=== PATIENT | male | born 1995 | race Caucasian/White ===

== ENCOUNTER 2023-04-01 22:43 | Day surgery (SDC) | payer BC, SELFPAY ==
[2023-04-01 23:02] VITALS: BP 120/88; PULSE 75; RESP 169; O2SAT 100; BMI 19.4
--- NOTE | 2023-04-01 23:27 | ED_ITS ---
HPI - Skin/Abscess/Foreign Bdy General Chief complaint: Skin/Abscess/Foreign Body Stated complaint: food stuck in his throat Time Seen by Provider: 04/01/23 23:22 History of Present Illness HPI narrative: Patient is a 27-year-old male status post ingestion some salmon. Feels like it is stuck in the suprasternal notch area. Denies any changes in speech. Denies any difficulty breathing. Unable to tolerate saliva. History of something similar. Usually resolve itself after going to the ER. Never been scoped in the past. Patient is from home. Related Data Allergies Allergy/AdvReac Type Severity Reaction Status Date / Time amoxicillin [AMOXICILLIN] Allergy Unknown HYPERACTIVI Verified 04/01/23 23:43 TY Review of Systems Review of Systems: No fever no chills no chest pain or shortness breath. Positive nausea unable to tolerate p.o. Yes all other systems are reviewed and are negative Constitutional: Constitutional: Reports as per [facility] Past Medical History Attestation statement: The following information was validated with the patient. Social History Social History Advance Directives: No Advance Directives Information Provided: No Physical Exam Vital Signs: Vital Signs: Last Vital Signs Pulse 75 04/01/23 23:02 Resp 169 H 04/01/23 23:02 BP 120/88 04/01/23 23:02 Pulse Ox 100 04/01/23 23:02 O2 Del Method Room Air 04/01/23 23:02 BMI result Body Mass Index 19.4 Appearance: Alert. Oriented X3. No acute distress. Eyes: Pupils equal, round and reactive to light. ENT: Pharynx normal. Neck: Normal inspection. Neck supple. No lymph nodes noted. No crepitus CVS: Normal heart rate and rhythm. Pulses normal. Normal S1 and S2 Respiratory: No respiratory distress. Breath sounds normal. No Wheezing. No rales Abdomen: Soft and nontender. No rigidity. No distention. good BS x4 Skin: Skin warm and dry. Normal skin color. Normal skin turgor. Extremities: No lower extremity edema. Neurovascular intact to all extremities. No Lacerations. No Rash Neuro: Oriented X 3. No motor deficit. No sensory deficit. Moving all extermities. No slurred speech Medications Administered Discontinued Medications Generic Name Dose Route Start Last Admin Trade Name Freq PRN Reason Stop Dose Admin Glucagon 1 mg 04/01/23 23:26 04/01/23 23:44 Glucagon Hcl 1 Mg Vial IVPUSH 04/01/23 23:27 1 mg ONCE ONE Administration Sodium Chloride 1,000 mls @ 999 mls/hr 04/01/23 23:30 04/01/23 23:44 Ns IV 04/02/23 00:30 999 mls/hr .Q1H1M JUVE Administration Medical Decision Making Medical Decision Making [facility] Narrative: Patient likely has esophageal food impaction. Cannot tolerate own saliva. Airway is grossly intact patient is able to speak has clear lungs. Given glucagon x1 dose given a L of fluid monitor for an hour still unable to tolerate fluids. Patient's case discussed with Dr. Landers from GI. Will come in and perform an endoscopy to try to relieve patient's food impaction. Currently in stable condition Differential Diagnosis Differential Diagnoses: The differential diagnosis associated with the presentation includes Food impaction, airway compromise Admission/Observation Consideration of admission/observation: Escalation of care including admission/observation considered Patient unable to be relieved with medication. will be going to endoscopy Consult Healthcare Provider Management of the patient was discussed with: Loss Prevention Officer Gastroenterology Lab Data [facility] Lab Attestation statement: I reviewed the patient's lab results. 04/01/23 23:32 04/01/23 23:32 Labs: Lab Results 04/01/23 04/01/23 Range/Units 23:32 23:32 WBC 5.5 (4.8-10.8) X10*3/uL RBC 5.13 (4.60-5.80) X10*6/uL Hgb 15.2 (14.0-18.0) g/dl Hct 43.0 (42.0-52.0) % MCV 83.8 (80.0-98.0) fL MCH 29.6 (27.0-33.0) pg MCHC 35.3 (31.0-36.0) g/dl RDW 11.8 (11.0-16.0) % Plt Count 159 L (160-400) X10*3/uL MPV 10.8 (9.4-12.4) fL Immature Gran % (Auto) 0.2 (0.0-0.4) % Neut % (Auto) 53.6 (45-73) % Lymph % (Auto) 35.0 (20-40) % [place] % (Auto) 6.6 (2-11) % Eos % (Auto) 3.7 (0-4) % Baso % (Auto) 0.9 (0-2) % Lymph # (Auto) 1.9 (1.2-4.9) X10*3/uL [place] # (Auto) 0.4 (0.1-1.2) X10*3/uL Eos # (Auto) 0.2 (0.0-0.4) X10*3/uL Baso # (Auto) 0.1 (0.0-0.2) X10*3/uL Abs Immat Gran (auto) 0.01 (0.00-0.03) X10*3/uL Absolute Neuts (auto) 2.9 (2.0-8.3) x10*3/uL Absolute Nucleated RBC 0.000 (0.0-0.012) X10*3/uL Nucleated RBC % (auto) 0.0 (0.0-0.2) /100WBC Sodium 142 (135-145) mmol/L Potassium 3.5 (3.3-5.1) mmol/L Chloride 106 (96-108) mmol/L Carbon Dioxide 28 (22-29) mmol/L Anion Gap 12 (12-20) BUN 10 (9-16) mg/dL Creatinine 0.92 (0.5-1.4) mg/dL Estim Creat Clear Calc 103.5 Estimated GFR > 60 Random Glucose 91 (60-115) mg/dL Calcium 10.1 (8.4-10.2) mg/dL Chronic Conditions History of food impaction in the past Discharge Plan Discharge Clinical Impression: Food impaction of esophagus Patient Disposition: Still a Patient
[2023-04-01 23:37] LABS: MANUAL DIFF FLAG NO
[2023-04-01 23:38] LABS: Basophils Absolute Auto 0.1 X10*3/uL (0.0-0.2); Basophils Percent Auto 0.9 % (0-2); Eosinophils Absolute Auto 0.2 X10*3/uL (0.0-0.4); Eosinophils Percent Auto 3.7 % (0-4); Hemoglobin 15.2 g/dl (14.0-18.0); Imm Gran Abs Auto 0.01 X10*3/uL (0.00-0.03); Imm Gran Pct Auto 0.2 % (0.0-0.4); Lymphocytes Absolute Auto 1.9 X10*3/uL (1.2-4.9); Mean Corpuscular HGB Conc 35.3 g/dl (31.0-36.0); Mean Corpuscular Hemoglobin 29.6 pg (27.0-33.0); Mean Corpuscular Volume 83.8 fL (80.0-98.0); Mean Platelet Volume 10.8 fL (9.4-12.4); Monocytes Absolute Auto 0.4 X10*3/uL (0.1-1.2); Monocytes Percent Auto 6.6 % (2-11); Neutrophils Absolute Auto 2.9 x10*3/uL (2.0-8.3); Neutrophils Percent Auto 53.6 % (45-73); Platelet Count 159 X10*3/uL (160-400); Red Blood Count 5.13 X10*6/uL (4.60-5.80); Red Cell Distribution Width 11.8 % (11.0-16.0); White Blood Count 5.5 X10*3/uL (4.8-10.8)
[2023-04-01] MEDS: 0.9 % Sodium Chloride 1,000 ML 999 ML IV (23:44)
[2023-04-01] MEDS: glucagon HCL 1 MG VIAL IVPUSH (23:44)
[2023-04-01 23:55] LABS: Anion Gap 12 (12-20); Blood Urea Nitrogen 10 mg/dL (9-16); Calcium 10.1 mg/dL (8.4-10.2); Carbon Dioxide 28 mmol/L (22-29); Chloride 106 mmol/L (96-108); Creatinine Clr Calc Pharmacy 103.5; Estimated Glomerular Filt Rate > 60; Glucose Random 91 mg/dL (60-115); Potassium 3.5 mmol/L (3.3-5.1); Sodium 142 mmol/L (135-145)
--- NOTE | 2023-04-02 01:54 | P.CONAN_ITS ---
[facility] Active Problems Active Problems: All Active Problems (Updated 04/02/23 @ 01:20 by Italia Shields MD) Food impaction of esophagus (Acute) Family History Family history of problems with anesthesia: No Surgical History History of Problems with Anesthesia: No Social History Social History Advance Directives: No Advance Directives Information Provided: No Meds Allergies Allergy/AdvReac Type Severity Reaction Status Date / Time amoxicillin [AMOXICILLIN] Allergy Unknown HYPERACTIVI Verified 04/01/23 23:43 TY Exam Exam Date and Time: April 02, 2023 0154 Height,Weight and Vital Signs: Height 5 ft 10 in Weight 61.235 kg Last Vital Signs Pulse 75 04/01/23 23:02 Resp 169 H 04/01/23 23:02 BP 120/88 04/01/23 23:02 Pulse Ox 100 04/01/23 23:02 O2 Del Method Room Air 04/01/23 23:02 Pertinent Lab Results Pertinent Lab Results: Laboratory Tests 04/01/23 04/01/23 23:32 23:32 WBC 5.5 RBC 5.13 Hgb 15.2 Hct 43.0 MCV 83.8 MCH 29.6 MCHC 35.3 RDW 11.8 Plt Count 159 L MPV 10.8 Immature Gran % (Auto) 0.2 Neut % (Auto) 53.6 Lymph % (Auto) 35.0 [place] % (Auto) 6.6 Eos % (Auto) 3.7 Baso % (Auto) 0.9 Lymph # (Auto) 1.9 [place] # (Auto) 0.4 Eos # (Auto) 0.2 Baso # (Auto) 0.1 Abs Immat Gran (auto) 0.01 Absolute Neuts (auto) 2.9 Absolute Nucleated RBC 0.000 Nucleated RBC % (auto) 0.0 Sodium 142 Potassium 3.5 Chloride 106 Carbon Dioxide 28 Anion Gap 12 BUN 10 Creatinine 0.92 Estim Creat Clear Calc 103.5 Estimated GFR > 60 Random Glucose 91 Calcium 10.1 Airway Mallampati Class: I TM Dist: >3cm Neck ROM: Full Heart: RRR Lungs: CTA Assessment and Plan Final Anesthetic Review Family History of Problems with Anesthesia: No History of Problems with Anesthesia: No NPO: No ASA Class: II, V and Emergency Final Preanesthetic Review: Meds/Allgs Chart Reviewed, Consent Obtained/Reviewed and Anes Risks/Benef Reviewed Patient Risk: Intermediate Procedure Risk: Low Anesthetic Plan Anesthetic Plan: GA Disposition: Standard PACU
--- NOTE | 2023-04-02 02:05 | PM.GICN ---
History of Present Illness Data of Consult Service Date: 04/02/23 Requesting physician: Italia Shields Primary Care Provider: Unknown Physician HPI Reason for consult: dysphagia 27 YM came to [facility] ED on 04/01/23 with dysphagia to solids and liquids. Pt reports he was eating [place] around 8:30 pm on 04/01/23 and food got stuck - feels like it is stuck in the suprasternal notch area.? Denies any changes in speech. Patient is been unable to swallow liquids or his saliva since then.? Denies any difficulty breathing.? Pt gives a hx of dysphagia to solids for the past several yrs. He had 3 ER visits in the past for food impaction which resolved by regurgitation of the food bolus Pt denies having an EGD in the past.? Patient is from home. Patient complains of intermittent heartburn related to diet. He denies recent change in appetite bowel habits or weight. 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 Patient denies major cardiac or pulmonary problems, loud snoring or sleep apnea Denies being on chronic anticoagulation. Patient denies smoking or EtOH abuse. 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 Pt's Dad has similar issues with his throat. Patient denies known family history of colon polyps, colon cancer or other GI malignancies. Review of Systems Review of Systems: No fever no chills no chest pain or shortness breath. Positive nausea unable to tolerate p.o. Yes all other systems are reviewed and are negative Constitutional: Constitutional: Reports as per HPI Meds Allergies Allergy/AdvReac Type Severity Reaction Status Date / Time amoxicillin [AMOXICILLIN] Allergy Unknown HYPERACTIVI Verified 04/01/23 23:43 TY Physical Exam Vital Signs: Vital Signs: Last Vital Signs Pulse 75 04/01/23 23:02 Resp 169 H 04/01/23 23:02 BP 120/88 04/01/23 23:02 Pulse Ox 100 04/01/23 23:02 O2 Del Method Room Air 04/01/23 23:02 BMI result Body Mass Index 19.4 Const: General: healthy appearing, no acute distress and other (spitting saliva in an emesis bag intermittently) Nutritional Appearance: underweight Orientation/consciousness: patient oriented x3 Limitations: no limitations HEENT: Head: Yes normal to inspection Ears: hearing grossly normal bilaterally Eyes: Sclerae: sclerae normal Pupils: Equal, round and reactive pupils present Neck: Neck: Yes normal visual inspection Chest: Chest palpation & inspection: normal inspection of the chest Resp: Effort & Inspection: normal respiratory effort Auscultation: clear to auscultation bilaterally Cardio: Palpation: normal PMI Rate: regular rate Rhythm: regular rhythm Heart sounds: S1 normal heart sound present, S2 normal heart sound present and no murmurs GI: Palpation (GI): Soft to palpation, nontender and No hepatosplenomegaly present Auscultation: normal bowel sounds Rectal Exam - Male: Yes deferred Skin: General skin exam: no rashes or lesions noted Neuro: General: patient oriented x3, gait normal and moves all extremities Cranial nerves: Yes Equal, round and reactive pupils present Psych: Appearance: grossly normal Mental Status: mental status grossly normal Results Labs 04/01/23 23:32 04/01/23 23:32 Labs: Short CBC 04/01/23 Range/Units 23:32 WBC 5.5 (4.8-10.8) X10*3/uL Hgb 15.2 (14.0-18.0) g/dl Hct 43.0 (42.0-52.0) % Plt Count 159 L (160-400) X10*3/uL BMP 04/01/23 23:32 Sodium 142 Potassium 3.5 Chloride 106 Carbon Dioxide 28 BUN 10 Creatinine 0.92 Calcium 10.1 Assessment and Plan (1) Food impaction of esophagus: Status: Acute Plan 27 YM came to [facility] ED on 04/01/23 with dysphagia to solids and liquids after he ate a piece of salmon at 8:30 pm on 04/01/23. No response to IV Glucagon. Patient reports intermittent episodes of dysphagia to solids for the past several years and has never had an upper endoscopy. Dysphagia is likely associated with esophageal stricture or ring or eosinophilic esophagitis. RECOMMENDATIONS: 1. Proceed with urgent upper endoscopy for removal of food bolus. EGD procedure and potential complications including bleeding, perforation, reaction to anesthetics and aspiration were reviewed with the patient. He would like to proceed Time Spent With Patient Time: Total time managing care of this patient today ____ minutes. Procedures Date of Service Date of Service: 04/09/23
--- NOTE | 2023-04-02 03:09 | W.PM.OPN ---
Operative Note Operative Note Date of Service: 04/02/23 Narrative: FLEXIBLE TRANSORAL UPPER GASTROINTESTINAL ENDOSCOPY WITH BIOPSIES, REMOVAL OF ESOPHAGEAL FOREIGN BODY AND ESOPHAGEAL BALLOON DILATION Pre-op diagnosis: Dysphagia due to esophageal food impaction Post-op diagnosis: Same Endoscopist:? Martin Landers MD Anesthesia:?GA with endotracheal intubation Consent: Indications for the procedure and potential complications of bleeding, perforation, reaction to medications and missed diagnosis were discussed with the patient and informed consent was obtained. Instrument: Olympus GIF H 190 mid size upper endoscope Monitoring: Vital signs and clinical assessment, continuous EKG monitoring, Pulse oximetry, Carbon Dioxide monitoring and blood pressure monitoring were done throughout the procedure. Procedure: The patient was placed in the left lateral decubitis position and pre-procedure medications were administered and a bite block was placed. The endoscope was inserted into the mouth and advanced under direct vision to the third part of duodenum. A careful inspection was made as the upper endoscope was withdrawn including a retroflexed examination of the proximal stomach; Findings and interventions are described below. Findings: Larynx: Normal - ET tube in place Esophagus: Narrow calibre esophagus with circular rings - biopsies were obtained from proximal esophagus to check for EOE. Food bolus and cloudy fluid noted in the distal esophagus. Fluid was suctioned and food bolus was removed with the help of a tri-pronged polyp grabber. GE junction at 40 cms with focal narrowing and unable to pass a mid size upper endoscope through the GE junction. Balloon dilation was performed with an 8 mm (24 F) and 9 mm (27 F) CRE balloon x 60 sec at each level. Mid size upper endoscope passed with minimal resistance into the stomach after dilation. Stomach: Normal gastric mucosa with a large amount of fluid in the fundus - suctioned. Grade 1 flap valve on retroflexed examination of the cardia. Duodenum: Normal bulb and descending duodenum Intervention: Biopsies as noted above Impression and Post Procedure Diagnosis: Endoscopy Findings: ESOPHAGUS: Narrow calibre esophagus with circular rings suggestive of EOE - biopsies were obtained from proximal esophagus to check for EOE. Food bolus and cloudy fluid noted in the distal esophagus. Fluid was suctioned and food bolus was removed with the help of a tri-pronged polyp grabber. GE junction at 40 cms with focal narrowing and unable to pass a mid size upper endoscope through with the GE junction. Balloon dilation was performed with an 8 mm (24 F) and 9 mm (27 F) CRE balloon x 60 sec at each level. Mid size upper endoscope passed with minimal resistance into the stomach. Plan: Await pathology results Start Omeprazole 20 mg twice daily Advise repeat EGD in 4-6 weeks for repeat dilation. Above findings were reviewed with the patient and EOE handout was given in the discharge area BIOPSIES SHOWED: Esophagus, proximal, biopsy:? Active esophagitis (maximum eosinophil count 28 per high powered field). COMMENT: The findings are consistent with eosinophilic esophagitis in the proper clinical context. 04/05/23 Pt called and biopsy results were reviewed showing EOE. Advised to start Omeprazole 20 mg twice daily - he picked up the prescription yet. Patient notes he has difficulty swallowing capsules - he was advised to sprinkle the contents of the capsule over applesauce and take it. ADvised to schedule FU EGD with dilation in 4 yo 6 weeks
[2023-04-02 03:22] VITALS: BP 114/65; PULSE 71; RESP 14; TEMP 36.6; O2SAT 96
--- NOTE | 2023-04-02 03:24 | HO.POSTANES ---
Post Anesthesia Evaluation Post Anesthesia Evaluation Date of Service: 04/02/23 Vital Signs: Vital Signs Temp Pulse Resp BP Pulse Ox O2 Del Method 04/02/23 03:22 97.8 F 71 14 114/65 96 Room Air 04/01/23 23:02 75 169 H 120/88 100 Room Air Anesthesia: General Endotracheal-GETA Mental Status: Awake Pain Control: Satisfactory Nausea/Vomiting: None Hydration: Adequate Anesthesia-Related Issues: No Anes. Related Issues
[2023-04-02 03:27] VITALS: BP 114/65; PULSE 76; RESP 12; O2SAT 97
[2023-04-02 03:32] VITALS: BP 105/65; PULSE 82; RESP 16; O2SAT 98
[2023-04-02 03:37] VITALS: BP 111/72; PULSE 76; RESP 14; O2SAT 99
[2023-04-02 03:52] VITALS: BP 114/75; PULSE 68; RESP 16; TEMP 36.6; O2SAT 100
== END 2023-04-02 03:55 | disposition home or self-care (01) ==
LOC: HO.ED 04-02 08:14 → HO.SSS 04-02 09:47
PROVIDERS: Emergency Provider Emergency Medicine Emergency Medical Services; Visit Provider Internal Medicine Gastroenterology
PROC: 0DJ08ZZ Inspection of Upper Intestinal Tract, Via Natural or Artificial Opening Endoscopic (ICD-10-PCS; CPT 43235; principal; 2023-04-02 02:30)
DX: T18.128A Food in esophagus causing other injury, initial encounter (principal); K22.2 Esophageal obstruction; R13.10 Dysphagia, unspecified; K20.80 Other esophagitis without bleeding; Z79.899 Other long term (current) drug therapy; Z88.1 Allergy status to other antibiotic agents
CPT/HCPCS: 43249; 43239; 36415; 80048; 85025; 88305; 96374; 99283; 99285; C1726; J1610; J2250; J2405; J3010

== ENCOUNTER → 2023-04-02 03:00 | Outpatient (BNV) | payer BC, SELFPAY | PROVIDERS: Emergency Provider Emergency Medicine Emergency Medical Services; Visit Provider Internal Medicine Gastroenterology | DX: R13.10 Dysphagia, unspecified (principal); T18.128A Food in esophagus causing other injury, initial encounter | CPT/HCPCS: 43249; 99283 ==

== ENCOUNTER 2023-05-24 08:53 | Day surgery (SDC) | payer BC, SELFPAY ==
--- NOTE | 2023-05-21 13:14 | HO.ANESPROP2 ---
Documented by User: Irma Marcano NP 05/21/23 13:16 HPI - Anesthesia Eval Consult details Narrative: 27yo M for Upper Endoscopy with Balloon Dilitation PMFSH Active Problems Active Problems: All Active Problems (Updated 04/05/23 @ 18:38 by Martin Landers MD) Eosinophilic esophagitis (Acute) Food impaction of esophagus (Acute) Past Medical History Medical History (Updated 05/24/23 @ 09:14 by Kiya Lomas, RN) Asthma Family History Family history of problems with anesthesia: No Surgical History Surgical History (Updated 05/21/23 @ 12:55 by Polly Carney, PAPI) Hx of esophagogastroduodenoscopy History of Problems with Anesthesia: No Social History Social History Patient Tobacco Use Status: Never used Tobacco Are you DNR?: No Advance Directives: No Advance Directives Information Provided: Yes Nutrition Risks: No Nutritional Risk Meds Allergies Allergy/AdvReac Type Severity Reaction Status Date / Time amoxicillin [AMOXICILLIN] Allergy Unknown HYPERACTIVI Verified 04/01/23 23:43 TY Home Medications Medication Instructions Recorded Confirmed Last Taken Type fluticasone propionate 50 1 inh inhalation DAILY 05/24/23 05/24/23 05/24/23 09:16 History mcg/actuation blister powder for inhalation (Flovent Diskus) Exam Exam Date and Time: May 21, 2023 1314 Pertinent Lab Results Pertinent Lab Results: Laboratory Tests 04/01/23 23:32 WBC 5.5 Hgb 15.2 Hct 43.0 Plt Count 159 L Sodium 142 Potassium 3.5 Chloride 106 Carbon Dioxide 28 BUN 10 Creatinine 0.92 Assessment and Plan Assessment Anesthesia Assessment: Chart Reviewed Final Anesthetic Review Family History of Problems with Anesthesia: No History of Problems with Anesthesia: No Documented by User: Coty Arndt MD 05/24/23 09:33 PMF Past Medical History Medical History (Updated 05/24/23 @ 09:14 by Kiya Lomas RN) Asthma Surgical History Surgical History (Updated 05/21/23 @ 12:55 by Polly Carney, PAPI) Hx of esophagogastroduodenoscopy Social History Social History Patient Tobacco Use Status: Never used Tobacco Are you DNR?: No Advance Directives: No Advance Directives Information Provided: Yes Nutrition Risks: No Nutritional Risk Meds Allergies Allergy/AdvReac Type Severity Reaction Status Date / Time amoxicillin [AMOXICILLIN] Allergy Unknown HYPERACTIVI Verified 04/01/23 23:43 TY Home Medications Medication Instructions Recorded Confirmed Last Taken Type fluticasone propionate 50 1 inh inhalation DAILY 05/24/23 05/24/23 05/24/23 09:16 History mcg/actuation blister powder for inhalation (Flovent Diskus) Exam Airway Mallampati Class: II TM Dist: >3cm Neck ROM: Full Heart: rrr Lungs: cta Assessment and Plan Assessment Anesthesia Assessment: Anesthesia Plan Discussed Final Anesthetic Review NPO: Yes ASA Class: II Final Preanesthetic Review: No Changes in Pt Med Stat, Meds/Allgs Chart Reviewed and Consent Obtained/Reviewed Patient Risk: Intermediate Procedure Risk: Intermediate Anesthetic Plan Anesthetic Plan: MAC: Disposition: Standard PACU
[2023-05-24 09:04] VITALS: BP 127/68; PULSE 81; RESP 20; TEMP 36.1; O2SAT 99; BMI 20.1
[2023-05-24] MEDS: Lactated Ringers 1,000 ML 100 ML IVCONT (09:10)
--- NOTE | 2023-05-24 09:30 | MHC.SHP ---
Pre-Procedural Eval Section A Date of Service: 05/24/23 The patient is an INPATIENT: No The History & Physical has been completed within 30 days and I have reviewed it.: No Section B Chief Complaint: Dysphagia, EOE Relevant Family History (Specify if Yes): No Relevant Social History: None Present Medications: see Short Stay Collaborative assessment Medical History: Significant History (asthma, EOE) History of Previous Operations: Relevant previous surgery/procedure and date(s) (hx of EGD) Allergies: Allergies Allergy/AdvReac Type Severity Reaction Status Date / Time amoxicillin [AMOXICILLIN] Allergy Unknown HYPERACTIVI Verified 04/01/23 23:43 TY Review of Systems Sugical H&P ROS: Negative: Constitution, Cardiovascular, Respiratory and Gastrointestinal Exam Surgical H&P Exam: Normal: Heart, Normal: Lungs, Normal: Extremities and Normal: Abdomen Plan Diagnosis/Plan: Unchanged I have reviewed the history and physical and performed a pertinent physical examination on my patient. No changes have occurred unless specified. Time Spent With Patient Time: Total time managing care of this patient today ____ minutes.
--- NOTE | 2023-05-24 09:36 | W.PM.OPN ---
Operative Note Operative Note Date of Service: 05/24/23 Narrative: FLEXIBLE TRANSORAL UPPER GASTROINTESTINAL ENDOSCOPY WITH BIOPSIES AND ESOPHAGEAL BALLOON DILATION Pre-op diagnosis: dysphagia, EOE Post-op diagnosis: same Endoscopist:? Martin Landers MD Anesthesia:?MAC Consent: Indications for the procedure and potential complications of bleeding, perforation, reaction to medications and missed diagnosis were discussed with the patient and informed consent was obtained. Instrument: Olympus GIF H 190 mid size upper endoscope Monitoring: Vital signs and clinical assessment, continuous EKG monitoring, Pulse oximetry, Carbon Dioxide monitoring and blood pressure monitoring were done throughout the procedure. Procedure: The patient was placed in the left lateral decubitis position and pre-procedure medications were administered and a bite block was placed. The endoscope was inserted into the mouth and advanced under direct vision to the third part of duodenum. A careful inspection was made as the upper endoscope was withdrawn including a retroflexed examination of the proximal stomach; Findings and interventions are described below. Findings: Larynx: Normal Esophagus: Improvement in calibre of esophagus and circular rings - biopsies were obtained from proximal esophagus for FU of EOE. GE junction at 40 cms and a mid size upper endoscope passed through the GE junction without resistance. Balloon dilation of distal esophagus was performed with a 12 mm (36 F) x 60 sec Balloon dilation of proximal esophagus was performed with an 11.5 mm (34.5 F) x 60 sec Stomach: Normal gastric mucosa. Grade 1 flap valve on retroflexed examination of the cardia. Duodenum: Normal bulb and descending duodenum Intervention: Biopsies as noted above Impression and Post Procedure Diagnosis: Endoscopy Findings: ESOPHAGUS: Improvement in calibre of esophagus and circular rings - biopsies were obtained from proximal esophagus for FU of EOE. GE junction at 40 cms and a mid size upper endoscope passed through the GE junction without resistance. Balloon dilation of distal esophagus was performed with a 12 mm (36 F) x 60 sec Balloon dilation of proximal esophagus was performed with an 11.5 mm (34.5 F) x 60 sec Plan: I will contact the patient with pathology results Pt advised to continue taking Omeprazole 20 mg twice daily. Repeat EGD with dilation in 4 months.
[2023-05-24 10:00] VITALS: BP 114/51; PULSE 67; RESP 16; TEMP 36.4; O2SAT 100
[2023-05-24 10:15] VITALS: BP 125/66; PULSE 70; RESP 16; TEMP 36.6; O2SAT 100
== END 2023-05-24 10:54 | disposition home or self-care (01) ==
PROVIDERS: Visit Provider Internal Medicine Gastroenterology
PROC: (CPT 43249; principal; 2023-05-24 10:30)
DX: R13.10 Dysphagia, unspecified (principal); Z87.19 Personal history of other diseases of the digestive system; J45.909 Unspecified asthma, uncomplicated; Z79.899 Other long term (current) drug therapy; Z88.1 Allergy status to other antibiotic agents
CPT/HCPCS: 43249; 43239; 88305; C1726

== ENCOUNTER → 2023-05-24 08:53 | Outpatient (BNV) | payer BC, SELFPAY | PROVIDERS: Visit Provider Internal Medicine Gastroenterology | DX: R13.10 Dysphagia, unspecified (principal); K20.0 Eosinophilic esophagitis | CPT/HCPCS: 43249 ==

== ENCOUNTER 2023-11-16 01:18 | Emergency (ER) | payer BC, SELFPAY ==
--- NOTE | ~2023-11-16 | XR_ITS ---
EXAMINATION: XR SOFT TISSUE NECK CLINICAL INDICATION: Foreign body stuck COMPARISON: None available. TECHNIQUE: 2 views of the soft tissue neck were obtained. FINDINGS: No definite radiopaque foreign body seen. Laryngeal cartilage calcifications are noted. No prevertebral soft tissue swelling. Epiglottis appears unremarkable. No acute osseous findings are seen. Included lung apices are well-aerated. XR/XR soft tissue neck IMPRESSION: No definite radiopaque foreign body identified.
[2023-11-16 01:43] VITALS: BP 108/77; PULSE 89; RESP 16; TEMP 36.7; O2SAT 100
[2023-11-16 02:01] VITALS: BMI 23.0
--- NOTE | 2023-11-16 02:08 | ED.GENADULT ---
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 status post balloon dilatation in 04/14 and 06/14 had food impaction on 04/14 which was removed comes here at after eating chicken feeling the same kind of feeling but able to drink in eat afterwards Related Data Home Medications Medication Instructions Recorded Confirmed fluticasone propionate 50 1 inh inhalation DAILY 05/24/23 05/24/23 mcg/actuation blister powder for inhalation (Flovent Diskus) Previous Rx's Medication Instructions Recorded omeprazole 20 mg tablet,delayed 20 mg PO BID 30 days #60 tabs 04/02/23 release Allergies Allergy/AdvReac Type Severity Reaction Status Date / Time amoxicillin [AMOXICILLIN] Allergy Unknown HYPERACTIVI Verified 11/16/23 01:52 TY Review of Systems Review of Systems: Yes all other systems are reviewed and are negative PMFSH Past Medical History Medical History Asthma Surgical History Hx of esophagogastroduodenoscopy Social History Social History Patient Tobacco Use Status: Never used Tobacco Smoked in Last 30 Days: No Use of substances other than those prescribed or required for medical reasons: No Advance Directives: No Advance Directives Information Provided: No Physical Exam ED Vital Signs: Vital Signs - 24 hr 11/16/23 01:43 Temperature 98.0 F Pulse Rate 89 Respiratory Rate 16 Blood Pressure 108/77 Pulse Oximetry 100 Oxygen Delivery Method Room Air BMI result Body Mass Index 23.0 Appearance: Alert. Oriented X3. No acute distress. ENT: Pharynx normal. Oral Mucosa moist no stridor Neck: Normal inspection. Neck supple. CVS: Normal heart rate and rhythm. Pulses normal. Respiratory: No respiratory distress. Equal air entry bilateral, no wheezing/rales/rhonchi Abdomen: Soft and nontender. Bowel sounds are present, Skin: Skin warm and dry. Normal skin color. Normal skin turgor. Neuro: Oriented X 3. Medications Administered Discontinued Medications Generic Name Dose Route Start Last Admin Trade Name Darrel PRN Reason Stop Dose Admin Glucagon 1 mg 11/16/23 02:11 11/16/23 02:32 Glucagon Hcl 1 Mg Vial IVPUSH 11/16/23 02:12 1 mg ONCE ONE Administration Medical Decision Making Medical Decision Making [facility] Narrative: Patient with narrow esophagus came with food impaction in the ED patient was able to drink liquids and had slice of bread the significant distress patient was given IV glucagon feeling much better at this time patient advised to small bites meals have water whenever he eats. Advised to follow with GI Independent Interpretation I performed an independent interpretation of an: Plain X-Ray Radiology Impression Discussion of test interpretation with radiology: I have reviewed the radiologist's reading. Discharge Plan Discharge Clinical Impression: Food impaction of esophagus Patient Disposition: Home, Self-Care Instructions: Food Impaction (ED) Additional Instructions: Have small bites of food and drink water along when you have meals Follow with music typographer for further re-evaluation Report to the ER if foreign body feeling continues Prescriptions: No Action omeprazole 20 mg tablet,delayed release (DR/EC) 20 mg PO BID 30 Days Qty: 60 3RF Flovent Diskus 50 mcg/actuation blister with device 1 inh inhalation DAILY
[2023-11-16] MEDS: glucagon HCL 1 MG VIAL IVPUSH (02:32)
--- NOTE | 2023-11-16 02:39 | PC.NURSE ---
epiglotis visible. airway patent. resp even and unlabored. nad. iv glucagon given per mar. awaiting xr. call lorenzo within reach.
--- NOTE | 2023-11-16 04:12 | PC.NURSE ---
pt tolerating po intake initially started with clear liquids per Dr. Rodriguez. pt now tolerating regular food. pt verbalizes improvement in sx. Dr. Rodriguez made aware.
[2023-11-16 04:43] VITALS: BP 110/64; PULSE 80; RESP 16; TEMP 36.8; O2SAT 100
== END 2023-11-16 04:44 | disposition home or self-care (01) ==
PROVIDERS: Emergency Provider Internal Medicine
DX: R09.89 Other specified symptoms and signs involving the circulatory and respiratory systems (principal); K56.49 Other impaction of intestine; M54.2 Cervicalgia
CPT/HCPCS: 70360; 96374; 99284; J1610